=== PATIENT | male | born 1960 | race Two or more races ===

== ENCOUNTER 2024-01-30 13:47 | Inpatient (IN) | payer OTHER, SELFPAY ==
[2024-01-30] VITALS (9 sets, daily range): BP systolic 108–161; BP diastolic 79–102; BMI 36.5
[2024-01-30 11:21] LABS: % Basophils 0.7 % (0-2); % Eosinophils 2.2 % (0-6); % Immature Granulocytes 0.4 % (0-0.5); % Lymphocytes 20.7 % (20.5-51.1); % Monocytes 6.3 % (1.7-9.3); % Neutrophils 69.7 % (42.2-75.2); Absolute Basophils 0.1 10^3/uL (0-0.2); Absolute Eosinophils 0.2 10^3/uL (0-0.7); Absolute Lymphocytes 1.7 10^3/uL (1.2-3.4); Absolute Monocytes 0.5 10^3/uL (0.1-0.6); Absolute Neutrophils 5.7 10^3/uL (1.4-6.5); Hematocrit 38.6 % (39.0-52.0); Hemoglobin 13.2 g/dL (13.0-18.0); Mean Corp Hgb Conc. 34.2 g/dL (33.0-37.0); Mean Corpuscular Hgb 31.1 pg (27.0-31.0); Mean Corpuscular Volume 90.8 fL (80.0-94.0); Nucleated Red Blood Cells % 0 % (-); Platelet Count 211 10^3/uL (130-400); Red Blood Cell Count 4.25 10^6/uL (4.70-6.10); White Blood Cell Count 8.2 10^3/uL (4.8-10.8)
[2024-01-30 11:28] LABS: ALT (SGPT) 37 U/L (0-50); AST (SGOT) 43 U/L (17-59); Albumin 4.6 g/dl (3.5-5.0); Alkaline Phosphatase 86 U/L (38-126); Blood Urea Nitrogen 23 mg/dl (9-20); Calcium 9.7 mg/dl (8.4-10.2); Carbon Dioxide 22 mmol/L (22-30); Chloride 106 mmol/L (98-107); Glucose 111 mg/dl (70-99); Potassium 4.8 mmol/L (3.5-5.1); Sodium 138 mmol/L (135-145); Total Bilirubin 0.6 mg/dl (0.2-1.3); Total Protein 7.1 g/dl (6.3-8.2); eGFR > 60.00
[2024-01-30 11:41] LABS: Troponin I 0.582 ng/ml
--- NOTE | 2024-01-30 11:48 | ED.GENMED ---
History of Present Illness
General
Chief Complaint: Chest Pain
Source: patient and records
Exam Limitations: none
Time Seen by Provider: 01/30/24 11:02
Nursing documentation reviewed up to this point in time: agreed with
History of Present Illness
History of Present Illness:
Patient is a 63-year-old male with a known history of coronary artery disease who presents to the emergency department after having chest pain couple nights ago where he could not lay flat. Patient denies any shortness of breath or diaphoresis. At
that time it came so severe that he did take nitroglycerin which seemed to help. Yesterday he felt okay and then last night he was okay however this morning developed chest pressure and took 3 nitroglycerin with relief. This chest pain is similar
to that. Patient again denies shortness of breath or diaphoresis but does feel left shoulders stiffness. Patient denies any exertional symptoms. 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 Patient states
that he passed the stress test prior to his previous stents. Patient denies fever or chills. Patient denies any sore throat, nasal congestion or cough. Patient denies any GI or symptoms. Patient denies any leg pain or swelling.
Past History
Past History
ED Past Medical History: CAD, HTN, Hypercholesterolemia and Other (ITP)
Social History
Tobacco: Former smoker
Review of Systems
Review of Systems
All Other Systems: ROS reviewed and negative except as documented in HPI and ROS
Constitutional: Reports no symptoms
EENT: Reports no symptoms
Respiratory: Reports no symptoms
Cardiac: Reports chest pain; Denies diaphoresis, palpitations or syncope
ABD/GI: Reports no symptoms
: Reports no symptoms
Musculoskeletal: Reports no symptoms
Skin: Reports no symptoms
Neurological: Reports no symptoms
Hematologic/Lymphatic: Reports no symptoms
Phy Exam
Physical Exam
Physical Exam:
Physical Exam
General: No apparent distress, alert and appropriate, well nourished, well hydrated
HENT: Normocephalic, supple with no lymphadenopathy, no thyromegaly
Eyes: Clear sclera, conjuctiva without injection
Heart: Regular rhythm and rate. No S3, S4. No murmur. No NVD, bruit
Lungs: No respiratory distress, no stridor, lung sounds clear and equal bilaterally, chest wall symmetrical and nontender
Abdomen: Soft, nontender, no organomegaly, no CVA tenderness, BS good
Neuro: Alert and oriented x 3, CN II - XII intact, no motor focality, no cerebellar dysfunction
Skin: no rash
Psychiatric: well kept. interactive and cooperative
Extremities: No edema, cyanosis, tenderness, Good and equal peripheral pulses.
Scores
Heart Score for Chest Pain Patients
STEMI patient?: No
History: Moderately Suspicious
ECG: Nonspecific Repolarization
Age: >45 - <65 years
Risk Factors: >/= 3 Risk Factors or History of CAD
Troponin: >/= 3 x Normal Limit
Heart Score for Chest Pain Patients: 7
Heart Score Risk: 72.7 % MACE over next 6 weeks
Course
Orders/Labs/Results
Orders:
Orders
01/30/24 10:28
Electrocardiogram (*1) Urgent
Reason for Study: Chest Pain
EKG- Treatment ONCE
01/30/24 10:51
Cardiac Monitoring- Treatment ONCE
IV Insert/Care/Rem.- Treatment PRN
O2 Therapy [RESP] Urgent
Titrate/Wean O2 to maintain O2 sat greater than (%): 90
Special Instructions: Maintain sats >/=90%
Pulse Ox/spot Check [RESP] Urgent
Quantity: 1
Special Instructions: ON ROOM AIR
01/30/24 11:06
Complete Blood Count/With Diff Urgent
Comprehensive Metabolic Panel Urgent
Troponin I Urgent
01/30/24 11:48
Aspirin Chewable [Low Strength Aspirin] 324 mg PO NOW STA
Heparin 4,000 units IV NOW STA
Nitroglycerin Ointment [Nitro-Bid] 1 inch TOPICAL NOW STA
01/30/24 11:[address] Non Medication Order As Directed
Physician Order: PTT 6 hours after initial start of Heparin infusion
Above order entered?: Yes
01/30/24 11:57
PTT Urgent
Comment: Obtain baseline before beginning heparin infusion if not already collected
01/30/24 12:00
Heparin 25282 Units/250 ml 25,000 units in 250 ml IV PER PROTOCOL
Weight to be used for heparin protocol in kilograms (kg):: 110
Protocol:: Cardiac Tx/Acute Coronary
PTT Goal Range to be used:: PTT 73 to 111 seconds
Order type:: Initial
INITIAL Infusion Dose (UNITS/KG/hr) & then follow protocol:: 15 units/kg/hr
Infusion Dose in UNITS/hr & then follow protocol (UNITS/hr):: 1,500
INFUSION RATE in mL/hr & then follow protocol (mL/hr):: 15
PTT less than or equal to 64 seconds:: Increase rate by 200 units/hr (+ 2 mL/hr)
PTT 64.1 to 72.9 seconds:: Increase rate by 100 units/hr (+ 1 mL/hr)
PTT 73 to 111 seconds:: Target Range. No change in rate.
PTT 111.1 to 130.9 seconds:: Decrease rate by 100 units/hr (- 1 mL/hr)
PTT 131 to 199.9 seconds:: HOLD for 1 hr. Then decrease rate by 200 units/hr (- 2 mL/hr)
PTT greater than or equal to 200 seconds:: HOLD for 2 hrs & Notify Provider. Then decrease by 200 units/hr (-
2 mL/hr)
Lab follow-up:: Each change, PTT q6h until 2 consecutive are therapeutic. Then PTT
daily.
01/30/24 13:10
Admit/Transfer Patient As Directed
Co-Sign Provider:
Level of Care: Inpatient admission
Assign to:: Telemetry
Physician / Group: ronald
Diagnosis: chest pain
Reason for Telemetry: Chest Pain syndromes
Date to Stop Telemetry: 02/01/24
Time to Stop Telemetry: 11:00
Reason for Hospitalization: chest pain
Expected length of stay greater than two midnights?: Yes
ELOS- Estimated Length of Stay in days: 3
I certify the patient meets the requirements for IP care: Yes
PRN Pain Medication Management As Directed
May give lesser potent ordered pain med per pt: Yes
preference::
Protocol:: Medication orders for pain may be administered in a
manner that supports deferring to patient preference
when the pt is:
- Requesting an ordered lesser potent pain medication.
Least to most potent pain medications are defined
as: acetaminophen < NSAID < tramadol < opioids
(morphine, oxycodone, hydromorphone).
- Requesting a lesser dose of the same medication IF
ORDERED.
- Requesting a less intrusive route of administration
if both routes are prescribed by the provider (PO <
IV).
01/30/24 13:12
Code Status As Directed
Resuscitation Status: Full Code
01/30/24 18:08
PTT Routine
Comment: IV HEPARIN GTT
02/01/24 11:00
DC Protocol for Telemetry ONCE
Abnormal Lab Results
01/30/24
11:06
RBC 4.25 L 10^6/uL
(4.70-6.10)
Hct 38.6 L %
(39.0-52.0)
MCH 31.1 H pg
(27.0-31.0)
BUN 23 H mg/dl
(9-20)
Glucose 111 H mg/dl
(70-99)
Troponin I 0.582 H* ng/ml
01/30/24 11:06
01/30/24 11:06
Vital Signs
Initial and Last Documented VS:
Initial Vital Signs
Temp Pulse Resp BP Pulse Ox
98.2 F 75 16 143/84 98
01/30/24 10:25 01/30/24 10:25 01/30/24 10:25 01/30/24 10:25 01/30/24 10:25
Last Documented Vital Signs
Temp Pulse Resp BP Pulse Ox
98.2 F 78 19 144/86 97
01/30/24 10:25 01/30/24 13:45 01/30/24 13:45 01/30/24 13:00 01/30/24 13:45
*Radiology
Radiology exam reviewed: other (na)
*Pulse Oximetry
Patient hypoxic: no
*EKG
Interpreted by ED Provider?: Yes
EKG Intrepretation Date: 01/30/24
EKG Intrepretation Time: 11:53
Interpretation: abnormal
Comparison EKG: changes noted
Heart Rate: 67
Rate: normal
Rhythm: sinus
[place]: normal axis
Interval: normal interval
QRS Pattern: normal QRS
Ischemia: non-specific ST changes
*Assistant Construction Superintendent Interpretation
Rate: normal
Interpretation: normal
Heart Rate: 65
Rhythm: sinus
*Critical Care Note
Total Time (30-74mins, 75-104mins- exclusive of procedures): 35 minutes
ED Attending Note
-
Portions of this chart may have been created with voice recognition software.� Occasional wrong word or��sound alike� substitutions may have occurred due to the inherent limitations of voice recognition software.
Discharge Plan
Departure
Patient Disposition: Admit
Date of Disposition: 01/30/24
Time of Disposition: 11:56
Admit to: IMU
Admit to doctor: Hospitalist
Presentation/result/management discussed w/ accepting MD/DO: Cardiology
Patient with high blood pressure during this ER visit?: Yes
Condition: Serious
Covid-19: Not Applicable
Discharge Problem:
Non-STEMI (non-ST elevated myocardial infarction)
Interventions
Interventions:
*Risk Screen - Suicide Last Done: 01/30/24 12:26
*General Assessment Last Done: 01/30/24 12:26
*Neglect/Abuse Screening Last Done: 01/30/24 12:26
ED- Fall Risk Assessment Last Done: 01/30/24 11:18
*ED COVID-19 Vaccine History Last Done: 01/30/24 12:26
ED- Cardiac Assessment Last Done: 01/30/24 11:18
[2024-01-30] MEDS: LOW STRENGTH ASPIRIN 324 MG PO (12:07)
[2024-01-30] MEDS: HEPARIN 4000 UNITS IV (12:07)
[2024-01-30] MEDS: NITRO-BID 1 INCH TOPICAL ×3 (12:07→23:57)
[2024-01-30] MEDS: HEPARIN 25000 UNITS/250 ML IV (12:08)
[2024-01-30 12:16] LABS: APTT 29.9 Sec (23.4-35.0)
--- NOTE | 2024-01-30 12:53 | HPS.HSE ---
Addendum entered and electronically signed by Luis Enrique Da Silva MD 01/30/24 13:23:
I spent a total of 78 minutes with the patient or on the floor. More than 50% of this time involved counseling and coordination of care.
Addendum entered and electronically signed by Luis Enrique Da Silva MD 01/30/24 13:22:
I saw and examined the patient.
The COMPTOMETER OPERATOR's note was reviewed and I agree with the note.
Comment:
66 male past medical history of CAD, hypertension, hyperlipidemia, CAD who is presenting with chest pain for the past couple nights. Unable to lay flat. Denies any shortness of breath or diaphoresis. States nitroglycerin alleviates chest pain.
States chest pain is similar to his prior cardiac event. Nitro patch applied and denies any further chest pain currently. Currently comfortable. In the ER labs with elevated troponin. States drinks multiple beers and vodka daily. History of
alcohol abuse withdrawal seizure. Received full dose aspirin nitroglycerin and started on Heparin infusion.
General: Well Developed, Well Nourished and No Apparent Distress, obese
HEENT: NormoCephalic, Moist mucous membranes and Atraumatic
Respiratory: Clear
Cardiac: S1/S2 and Regular Rhythm; No Murmur or Rub
GI: Soft, Non Tender, Non Distended and Normal Bowel Sounds; No Organomegaly
Musculoskeletal: No Clubbing, No Cyanosis and No Edema
Skin: No Rash
Neuro: AO x 3 and Nonfocal/grossly intact
Impression
Elevated Troponin likely secondary to NSTEMI
CAD
Daily alcohol abuse
Primary hypertension
Hyperlipidemia
Gout
Plan
Start patient on heparin infusion
Trend troponin
Check proBNP
Echo in the morning
Cardiology eval
N.p.o. past midnight in case of cardiac catheterization
Continue home meds
DVT prophylaxis heparin infusion.
Original Note:
Family Physician
-
Family Physician: Ruy Jay
Chief Complaint
-
chest pain
History of Present Illness
63-year-old male with a known history of coronary artery disease, htn, ITP, HLd who presents to the emergency department after having chest pain couple nights ago where he could not lay flat. stated mid chest pain radiating to back of his neck.
Patient denies any shortness of breath or diaphoresis. took nitro with some relief in his symptoms. patient also noted elevated BP at that time. Patient denies fever or chill, runny nose, congestion, cough. denied abdominal pain, n,v, d. denied
dysuria or hematuria.
noted elevated trop. initiated on heparin drip. gave asa. admitting for further management.
Medical History
Past Medical History
Past Medical History: Reports Other
Additional Past Medical History:
ITP
Hyperlipidemia
Coronary artery disease coronary artery disease
Hypertension
Past Surgical History: Reports Other
Additional Past Surgical History:
Cardiac stent
bilateral hip surgery
Social History
Tobacco: Former Smoker
Alcohol: Daily
Drug: None
Personal:
Living: With Family
Family History
Family History: Not pertinent
Allergies / Home Medications
Allergies reflects when Allergies were last updated in [facility].
Home Medications with original date entered in [facility]
Allergy/Medication List:
Allergies
Allergy/AdvReac Type Severity Reaction Status Date / Time
No Known Allergies Allergy Verified 01/30/24 10:27
Home Medications
allopurinol 300 mg tablet 300 mg PO DAILY 09/04/20
aspirin 81 mg chewable tablet 81 mg PO DAILY 09/04/20
atorvastatin 40 mg tablet 80 mg (2 x 40 mg) PO QPM 09/04/20
metoprolol succinate 25 mg tablet,extended release 24 hr 25 mg PO DAILY 09/04/20
nitroglycerin 0.4 mg sublingual tablet 0.4 mg sublingual [id number] PRN chest pain 09/04/20
ibuprofen 200 mg tablet (Advil) 200 mg PO Q6HPRN PRN mildpain 01/30/24
Review of Systems
-
Cardiac: Reports No Symptoms and Chest Pain
Physical Exam
Vital Signs
Vital Signs
Temp Pulse Resp BP Pulse Ox
98.2 F 67 21 137/81 98
01/30/24 10:25 01/30/24 12:15 01/30/24 12:15 01/30/24 12:06 01/30/24 12:15
Physical Exam
General: Well Developed, Well Nourished and No Apparent Distress
HEENT: NormoCephalic, Moist mucous membranes and Atraumatic
Respiratory: Clear
Cardiac: S1/S2 and Regular Rhythm; No Murmur or Rub
GI: Soft, Non Tender, Non Distended and Normal Bowel Sounds; No Organomegaly
Rectal: Deferred by Provider
Musculoskeletal: No Clubbing, No Cyanosis and No Edema
Skin: No Rash
Neuro: AO x 3 and Nonfocal/grossly intact
Laboratory Results
-
01/30/24 11:06
01/30/24 11:06
Laboratory Results
APTT 29.9 Sec (23.4-35.0) 01/30/24 11:57
Total Bilirubin 0.6 mg/dl (0.2-1.3) 01/30/24 11:06
AST 43 U/L (17-59) 01/30/24 11:06
ALT 37 U/L (0-50) 01/30/24 11:06
Alkaline Phosphatase 86 U/L (38-126) 01/30/24 11:06
Troponin I 0.582 ng/ml H* 01/30/24 11:06
Data Reviewed
-
Lab Data: Labs Reviewed by me
Impression/Plan
-
#chest pain r/o NSTEMI
-trop 0.58
-trend trop
-iv heparin
-asa continued
-EKG with NSR with T wave inversion
-obtain a1c, lipid profile
-nitro prn for chest pain
-morphine prn for chest pain
-will keep patient NPO after MN
-cardiology consulted
#hxt of CAD
-s/p cardiac stents
# Alcohol dependence.
-drinks and couple vodka and beers daily
-last drink was last night
-initiate on alcohol protocol
-monitor MSAS score
#GOUT
-allopurinol ocntinued
#HLD
-statin
#essential htn
-metoprolol continued with hold parameters
#DVT prophylaxis
-heparin drip
#CODE status
-full code
-
--- NOTE | 2024-01-30 13:23 | W.PN.UPDATE ---
Update Note
Progress Note Update
For billing purposes.
--- NOTE | 2024-01-30 14:40 | CON.CAR ---
Consultation
Consultation Request
Date/Time Consultation Requested: 01/30/2024 12: 30
Date/Time Consultation Performed: 01/30/2024 13: 00
Requesting Provider: Trey
Performing Provider: Rossana
Reason for Consultation: Chest pain, non-STEMI
Medical History
-
Chief Complaint: Chest pain
History of Present Illness:
Pee has a history of hyperlipidemia, gout, thrombocytopenia with prior ITP. He has a history of LAD stent by Dr. Thacker in 2020. He was found to have nonobstructive right coronary artery disease in 2020 as well. He is followed by Dr. Sales
at [facility].
He presents with chest discomfort over the last 3 days. It would come and go like a pressure in the chest. Of note 2 days ago he woke up with pain at 2 AM and took ventricular strain. The pain lasted 2 hours. He continued to get chest discomfort
came to the ER and found to have a non-STEMI with a troponin of 0.58. He denies chest pain at the present time. He took 2 nitroglycerin earlier today.
Past Medical History
Past Medical History: Other (See HPI)
Past Surgical History: Other (3 different hip replacements)
Social History
Alcohol: Daily (At least 2 drinks per day)
Drug: None
Personal:
Living: With Family
Employment: Retired
Family History
Family History: Other (No family history of premature coronary artery disease)
Allergies / Home Medications
Allergy/AdvReac Type Severity Reaction Status Date / Time
No Known Allergies Allergy Verified 01/30/24 10:27
�Medication �Instructions �Recorded �Confirmed �Type
allopurinol 300 mg tablet 300 mg PO DAILY 09/04/20 01/30/24 History
aspirin 81 mg chewable tablet 81 mg PO DAILY 09/04/20 01/30/24 History
atorvastatin 40 mg tablet 80 mg (2 x 40 mg) PO QPM 09/04/20 01/30/24 Rx
metoprolol succinate 25 mg 25 mg PO DAILY 09/04/20 01/30/24 History
tablet,extended release 24 hr
nitroglycerin 0.4 mg sublingual 0.4 mg sublingual [id number] PRN 09/04/20 01/30/24 History
tablet chest pain
ibuprofen 200 mg tablet (Advil) 200 mg PO Q6HPRN PRN mildpain 01/30/24 01/30/24 History
Review of Systems
-
History Source: Patient
All other systems: Negative unless noted
Constitutional: No Symptoms
EENT: No Symptoms
Respiratory: No Symptoms
Cardiac: Chest Pain
Abdomen/GI: No Symptoms
: No Symptoms
Musculoskeletal: No Symptoms
Skin: No Symptoms
Neurological: No Symptoms
Endocrine: No Symptoms
Hematologic/Lymphatic: No Symptoms
Physical Exam
Vital Signs
Temp Pulse Resp BP Pulse Ox
98.2 F 78 19 144/86 97
01/30/24 10:25 01/30/24 13:45 01/30/24 13:45 01/30/24 13:00 01/30/24 13:45
General: Well developed, well nourished in NAD.
Neck: Supple, no JVD, HJR, carotids +2 B/L, no bruits bilaterally.
Heart: Non displaced PMI, RRR, no murmurs, No S3, S4, no rubs.
Lungs: Clear to auscultation bilaterally, no wheeze, rhonchi, rubs bilaterally,
normal expiratory phase.
Abdomen: Normal bowel sounds, soft, non-tender, non-distended.
Extremities: No clubbing, cyanosis or edema bilaterally.
Neuro: Grossly nonfocal, awake, alert and oriented x3.
Lab Results
01/30/24 11:06
01/30/24 11:06
Troponin I 0.582 ng/ml H* 01/30/24 11:06
Impression / Plan
-
Impression:
Non-STEMI with troponin of 0.58
History of LAD stent [address] Thacker
Nonobstructive RCA disease September 2020 by invasive physiologic lesion assessment
History of hypertension
History of hypercholesterolemia
Catheterization August 2020: LAD stent
Catheterization September 2020: No obstructive disease noted in right coronary artery
Plan:
He presents with worsening chest pain and NSTEMI
He is currently pain-free on IV heparin
Will add nitroglycerin paste
Will continue Toprol, aspirin, Lipitor
check lipids
Discussed with Dr. Thacker who will plan on cardiac catheterization 01/30 PM
N.p.o. after midnight
Data Reviewed
-
EKG: Tracing Personally Visualized and interpreted
Medical Tests (Nuc Med, Echo etc): Report Reviewed by me
Labs: Labs Reviewed by me
Old Records: Reviewed
[2024-01-30] MEDS: NITROSTAT (SUBLINGUAL) 0.4 MG SL ×2 (15:32→23:23)
[2024-01-30] MEDS: MORPHINE SULFATE 1 MG IV ×2 (15:45→23:41)
[2024-01-30 16:02] LABS: Alcohol None Detected; GGTP 67 U/L (15-73); Magnesium 1.9 mg/dl (1.6-2.3); Phosphorus 3.7 mg/dl (2.5-4.5)
[2024-01-30 16:04] LABS: Troponin I 0.714 ng/ml
[2024-01-30 16:08] LABS: B-Hydroxybutyrate 0.29 mmol/L (0.02-0.27)
[2024-01-30] MEDS: LIPITOR 80 MG PO (16:58)
[2024-01-30 17:47] LABS: Urine Albumin Negative (Neg - Trace); Urine Bilirubin Negative (Negative); Urine Character Clear (Clear); Urine Color Yellow; Urine Glucose Negative (Negative); Urine Ketone Negative (Negative); Urine Leukocyte Negative (Negative); Urine Nitrite Negative (Negative); Urine Occult Blood Negative (Negative); Urine Specific Gravity 1.025 (<1.030); Urine Urobilinogen Negative (Neg - 1+)
[2024-01-30 17:56] LABS: Amphetamines Negative (Negative); Barbiturates Negative (Negative); Benzodiazepines Negative (Negative); Buprenorphine Negative (Negative); Cocaine Negative (Negative); Marijuana Negative (Negative); Methadone Negative (Negative); Methamphetamines Negative (Negative); Opiates Positive (Negative); Phencyclidine Negative (Negative); Tricyclic Antidepressants Negative (Negative)
[2024-01-30 18:09] LABS: APTT 92.7 Sec (23.4-35.0)
[2024-01-30 18:18] LABS: Fentanyl, Urine Negative (Negative)
[2024-01-30 18:21] LABS: Troponin I 0.536 ng/ml
[2024-01-30] MEDS: THIAMINE INJECTION 200 MG IV (20:31)
[2024-01-30] MEDS: TYLENOL 1000 MG PO (21:06)
[2024-01-31] VITALS (19 sets, daily range): BP systolic 113–146; BP diastolic 73–108; BMI 36.2
--- NOTE | 2024-01-31 00:12 | PTCARENOTE ---
At 2320, patient complained of worsening chest pain. Patient rated chest pain 5/10. Sublingual nitro and iv morphine given, see MAR. See chart for vitals. EKG done. Marychuy JARAMILLO made aware. Troponin ordered.
[2024-01-31 00:14] LABS: APTT 68.7 Sec (23.4-35.0)
[2024-01-31 00:31] LABS: Troponin I 0.597 ng/ml
[2024-01-31] MEDS: HEPARIN 25000 UNITS/250 ML IV (05:03)
[2024-01-31] MEDS: TYLENOL 650 MG PO ×2 (05:08→22:04)
[2024-01-31] MEDS: NITRO-BID 1 INCH TOPICAL ×2 (05:08→12:10)
[2024-01-31 09:05] LABS: Glycohemoglobin (HgbA1c) 5.8 % (4.0-5.6)
[2024-01-31] MEDS: THIAMINE INJECTION 200 MG IV ×2 (09:37→19:47)
[2024-01-31] MEDS: TOPROL XL 25 MG PO (09:37)
[2024-01-31] MEDS: FOLVITE 1 MG PO (09:37)
[2024-01-31] MEDS: LOW STRENGTH ASPIRIN 81 MG PO (09:37)
[2024-01-31] MEDS: ZYLOPRIM 300 MG PO (09:37)
[2024-01-31 09:53] LABS: Blood Urea Nitrogen 17 mg/dl (9-20); Carbon Dioxide 27 mmol/L (22-30); Chloride 104 mmol/L (98-107); Estimated Creatinine Clearance 94 ml/min; Glucose 120 mg/dl (70-99); HDL Cholesterol 81 mg/dl; LDL Cholesterol, Calculated 28 mg/dl; Potassium 4.5 mmol/L (3.5-5.1); Sodium 139 mmol/L (135-145); Total Cholesterol 147 mg/dl (50-199); Triglyceride 192 mg/dl (10-149); Very Low Density Lipoprotein 38 mg/dl (0-30); eGFR > 60.00
[2024-01-31 10:01] LABS: Hematocrit 40.1 % (39.0-52.0); Hemoglobin 13.4 g/dL (13.0-18.0); Mean Corp Hgb Conc. 33.4 g/dL (33.0-37.0); Mean Corpuscular Hgb 31.3 pg (27.0-31.0); Mean Corpuscular Volume 93.7 fL (80.0-94.0); Mean Platelet Volume 10.1 fL (7.4-10.4); Platelet Count 213 10^3/uL (130-400); Red Blood Cell Count 4.28 10^6/uL (4.70-6.10); White Blood Cell Count 8.7 10^3/uL (4.8-10.8)
[2024-01-31 14:12] LABS: ACT-LR - POC 247 Seconds (116-155)
[2024-01-31 14:26] LABS: ACT-LR - POC 334 Seconds (116-155)
--- NOTE | 2024-01-31 14:41 | W.PN.CARDCBS ---
Today's Communication / Plan
-
Chest pain-free
For cardiac catheterization later today
Impression / Plan
-
Biofuels Plant Operations Engineer: Dr. Sales ([facility])
Impression:
Non-STEMI with troponin of 0.7
History of LAD stent [address] Thacker
Nonobstructive RCA disease September 2020 by invasive physiologic lesion assessment
History of hypertension
History of hypercholesterolemia
Catheterization August 2020: LAD stent
Catheterization September 2020: No obstructive disease noted in right coronary artery
Plan:
No further chest pain
For cardiac catheterization today with Dr. Thacker
LDL 28 but may be spuriously low due to GA, continue high-dose Lipitor
Continue Toprol
Consider Jardiance if insurance will allow
Case management consult to evaluate cost
Further treatment depending on results of catheterization
Progress Note - Biofuels Plant Operations Engineer
Subjective
Date of Service: January 31, 2024
No chest pain or shortness of breath
Objective
Labs:
01/31/24 09:19
01/31/24 09:19
Labs
Hgb 13.4 g/dL (13.0-18.0) 01/31/24 09:19
Hct 40.1 % (39.0-52.0) 01/31/24 09:19
Plt Count 213 10^3/uL (130-400) 01/31/24 09:19
APTT 100.0 Sec (23.4-35.0) H 01/31/24 09:19
Sodium 139 mmol/L (135-145) 01/31/24 09:19
Potassium 4.5 mmol/L (3.5-5.1) 01/31/24 09:19
BUN 17 mg/dl (9-20) 01/31/24 09:19
Creatinine 0.9 mg/dL (0.7-1.3) 07/22/24 09:19
Glucose 120 mg/dl (70-99) H 01/31/24 09:19
Troponins
01/30/24 01/30/24 01/30/24
11:06 15:25 17:50
Troponin I 0.582 H* 0.714 H* 0.536 H*
01/30/24
23:56
Troponin I 0.597 H*
Vital Signs and I&O:
Vital Signs
Temp Pulse Resp BP Pulse Ox
97.8 F 73 16 122/75 100
01/31/24 11:05 01/31/24 11:05 01/31/24 11:05 01/31/24 11:05 01/31/24 11:05
Vital Signs
Temp Pulse Resp BP Pulse Ox
97.8 F 73 16 122/75 100
01/31/24 11:05 01/31/24 11:05 01/31/24 11:05 01/31/24 11:05 01/31/24 11:05
Intake & Output
01/29/24 01/30/24 01/31/24 02/01/24
06:59 06:59 06:59 06:59
Intake Total 1305 / 1305
Balance 1305 / 1305
Physical Exam
Physical Exam
General: Well developed, well nourished in NAD.
Neck: Supple, no JVD, HJR, carotids +2 B/L, no bruits bilaterally.
Heart: Non displaced PMI, RRR, no murmurs, No S3, S4, no rubs.
Lungs: Clear to auscultation bilaterally, no wheeze, rhonchi, rubs bilaterally,
normal expiratory phase.
Extremities: No clubbing, cyanosis or edema bilaterally.
Neuro: Grossly nonfocal, awake, alert and oriented x3.
--- NOTE | 2024-01-31 14:55 | ITS.CL.ANGIO ---
Master Automotive Glass Technician - Angioplasty
Angioplasty
Procedure Report:
LEFT HEART CATHETERIZATION
Date of Procedure: 01/31/2024
Procedures performed:
1: Coronary angiography
2: Left ventricular hemodynamic
3: Percutaneous coronary intervention to right coronary artery with placement of a [id number] Xience drug eluting stent post dilated at high pressure with a 3.25mm noncompliant balloon
Primary Care Physician: Dr. Ruy Jay
Primary Waiter/Waitress Formal: Dr. Trey Sales
INDICATION: The patient is a 63-year-old man with a past medical history significant for hyperlipidemia, gout, status post bilateral hip replacement, prior ITP, body mass index of 35, and CAD s/p LAD stenting in 2020 who presents with new onset
crescendo angina and ruled in for a small NSTEMI.
ACCESS: The patient was prepped and draped in usual sterile fashion. A 6 Faroese sheath was placed in the right radial artery using the Seldinger over the wire technique.
HEMODYNAMIC FINDINGS (mmHg):
LV(s/d,EDP): 120/12, 116
Ao(s/d,m): 120/78, 94
ANGIOGRAPHIC FINDINGS:
Single-plane Left Ventriculography in OLIVA Projection: Not done.
Coronary Angiography:
Dominance: Right
Left Main: Normal
Left Anterior Descending: The left anterior descending artery is a relatively large caliber vessel that gives rise to a large caliber high first diagonal branch which courses and a ramus distribution. The diagonal branch appears widely patent with
no focal obstructive disease and ESTELA-3 flow. The LAD itself has two widely patent overlapping stents with mild in-stent restenosis and normal distal flow.
Left Circumflex: The left circumflex is a large caliber nondominant system that gives rise to 2 large caliber widely patent obtuse marginal branches that have ESTELA-3 flow.
Right Coronary: The right coronary artery is a medium caliber dominant vessel. The proximal right coronary artery has diffuse moderate disease with a long area of tapered 30% proximal stenosis followed a pre-occlussive 99% mid stenosis through a
tortuous segment involving the takeoff of a relatively large caliber RV marginal branch that has an ostial 70% stenosis. The distal RCA has a high bifurcation gives rise to a medium caliber posterior descending artery and smaller posterior left
ventricular branch. The distal vessels are widely patent with ESTELA 2 flow.
Percutaneous Coronary Intervention (PCI): In light of the patient's crescendo symptoms and the above angiographic findings with critical RCA disease, I elected to proceed with PCI of the RCA. The patient was given unfractionated heparin and
pretreated with aspirin. A loading dose of clopidogrel 600 mg was given on the table. A 6 Faroese AL 0.75 guiding catheter was used to engage. A BMW wire was easily advanced across the preocclusive stenosis and predilation with a 2.0 x 20 mm balloon
restored ESTELA 3 flow. Next a 2.75 x 28 Xience drug-eluting stent was deployed at 14 melissa. The stent was postdilated with a 3.0 mm diameter noncompliant balloon. Follow-up angiography showed some residual stenosis so the entire stented segment was
postdilated in a distal to proximal fashion with a 3.25 mm diameter noncompliant balloon inflated to 16 melissa. Care was taken to stay within the stented margins.
FINAL RESULT: 0% in-stent residual stenosis with an excellent angiographic result and ESTELA-3 flow in all vessels.
Flouroscopy time(min): 12.1
Radiation Dose (mGy): 875
DAP (Gy.cm2): 48
Closure device: None. A TR band was applied for hemostasis at the right wrist.
Complications: None.
ASSESSMENT:
1: Successful PCI of the culprit right coronary artery with placement of a drug-eluting stent as described above.
2: Widely patent previously placed LAD stents.
3: Normal left ventricular filling pressures.
CONCLUSIONS and RECOMMENDATIONS:
1: Routine post drug-eluting stent and post non-STEMI medical therapy and monitoring with dual antiplatelet therapy with aspirin and Plavix uninterrupted for a year and aspirin 81 mg daily indefinitely without interruption.
Gregorio Thacker M.D.
Copy to: Dr. Ruy Jay
--- NOTE | 2024-01-31 15:02 | CM ---
IA Completed by manager of case management.
Dx: chest pain.
PMH: CAD, HTN, HDL, hx alcohol abuse.
CM consult for substance abuse counseling complete.
Discussed resources for alcohol. [facility] pamphlet given to patient. Declined a visit from [facility] at this time.
Lives at home with who is a retired nurse in a 2 story home. 12 steps to bedroom.
PLOF: Independent, drives
Cardiac cath scheduled today.
PCP: Ruy Devlin
[facility]
Plan: Discharge to home when stable. to transport home. No needs anticipated at this time.
--- NOTE | 2024-01-31 16:00 | CM ---
Pricing on [employer] is $47 for a 30 day supply.
[2024-01-31] MEDS: NSS 1000 IV (16:19)
--- NOTE | 2024-01-31 16:24 | CM ---
Chart reviewed. Patient is independent of ADLS, lives with his in a 2 STH, 0 JERSON, 0 DME. Plan is for the patient to return home . CM to follow
[2024-01-31] MEDS: LIPITOR 80 MG PO (18:16)
--- NOTE | 2024-01-31 18:22 | W.PN.HOSP.TC ---
Today's Communication/Plan
-
BMP in AM
Assessment / Plan
Assessment / Plan
#chest pain consistent with NSTEMI
-trop 0.58-->0.714-->0.536-->0.597
-trend trop
-iv heparin
-asa continued
-EKG with NSR with T wave inversion
-5.8% a1c, lipid profile
-nitro prn for chest pain
-morphine prn for chest pain
-cardiology consulted
Pt to be on ASA/Plavix for 1 yr, then ASA 81 mg indefinitely
As per cath report: 1: Successful PCI of the culprit right coronary artery with placement of a drug-eluting stent as described above.
2: Widely patent previously placed LAD stents.
3: Normal left ventricular filling pressures.
#hxt of CAD
-s/p cardiac stents
# Alcohol dependence.
-drinks and couple vodka and beers daily
-last drink was last night
-initiate on alcohol protocol
-monitor MSAS score
#GOUT
-allopurinol continued
#HLD
-statin
#essential htn
-metoprolol continued with hold parameters
#DVT prophylaxis
-heparin drip
#CODE status
-full code
-BMP in AM
Anticipated Discharge: Within 24 hours
Subjective/Interval History
-
Date of Service: January 31, 2024
No chest pain, in good spirits
Objective Data
-
Labs:
Laboratory Results
01/31/24 01/31/24
09:19 15:00
WBC 8.7
Hgb 13.4
Hct 40.1
Plt Count 213
APTT 100.0 H Cancelled
Sodium 139
Potassium 4.5
Chloride 104
Carbon Dioxide 27
BUN 17
Creatinine 0.9
Glucose 120 H
Calcium 10.0
Vital Signs:
Vital Signs
Temp Pulse Resp BP Pulse Ox
97.8 F 92 18 144/86 97
01/31/24 15:33 01/31/24 16:45 01/31/24 15:33 01/31/24 16:30 01/31/24 16:30
I&O
01/30/24 01/31/24 02/01/24
06:59 06:59 06:59
Intake Total 1305 / 1305 1445 / 1445
Output Total 400 / 400
Balance 1305 / 1305 1045 / 1045
Review of Systems
-
History Source: Patient
Constitutional: Denies Fever
EENT: Reports No Symptoms Reported
Respiratory: Reports No Symptoms
Cardiac: Reports No Symptoms; Denies Chest Pain
Abdomen/GI: Reports No Symptoms
Genitourinary: Reports No Symptoms
Neuro: Reports No Symptoms
Physical Exam
-
General: Well Developed and No Apparent Distress
HEENT: Normocephalic, Atraumatic and Moist Mucous Membranes
Respiratory: Other (coarse BS primarily bilateral lower lung field)
Cardiac: Regular Rhythm and S1/S2
GI: Nontender and Nondistended
Musculoskeletal: No Clubbing, No Cyanosis and No Edema
Skin: Warm and Dry; Negative Rash
--- NOTE | 2024-01-31 21:52 | PTCARENOTE ---
Assumed care of pt from dayshift RN. Walking rounds completed. Pt AAOx3. MSAS score 0. SR on the monitor. HR 70s. BP stable. No edema noted. Palpable pulses throughout. Pt on RA. POX 97%. Lung sounds clear throughout. Abdomen soft/nontender. +BS. Pt
voiding w/o issue. Right radial cath site clean/dry/intact. Pt instructed on right arm post cath restrictions. Right PIV clean/dry/intact. See worklist for full nursing assessment. Call herzog within reach.
[2024-02-01 03:49] VITALS: BP 131/77
[2024-02-01 04:05] VITALS: BMI 36.1
[2024-02-01 04:32] LABS: Hemoglobin 13.1 g/dL (13.0-18.0); Mean Corp Hgb Conc. 33.6 g/dL (33.0-37.0); Mean Corpuscular Hgb 30.7 pg (27.0-31.0); Mean Corpuscular Volume 91.3 fL (80.0-94.0); Platelet Count 212 10^3/uL (130-400); Red Blood Cell Count 4.27 10^6/uL (4.70-6.10); Red Cell Dist. Width 14.2 % (11.5-14.5); White Blood Cell Count 7.6 10^3/uL (4.8-10.8)
[2024-02-01] MEDS: TYLENOL 650 MG PO (04:35)
[2024-02-01 04:52] LABS: Blood Urea Nitrogen 16 mg/dl (9-20); Calcium 9.8 mg/dl (8.4-10.2); Carbon Dioxide 24 mmol/L (22-30); Chloride 107 mmol/L (98-107); Estimated Creatinine Clearance 106 ml/min; Glucose 106 mg/dl (70-99); Potassium 4.6 mmol/L (3.5-5.1); Sodium 139 mmol/L (135-145); eGFR > 60.00
[2024-02-01 07:55] VITALS: BP 125/74
[2024-02-01] MEDS: PLAVIX 75 MG PO (08:02)
[2024-02-01] MEDS: LOW STRENGTH ASPIRIN 81 MG PO (08:02)
[2024-02-01] MEDS: ZYLOPRIM 300 MG PO (08:03)
[2024-02-01] MEDS: FOLVITE 1 MG PO (08:04)
[2024-02-01] MEDS: TOPROL XL 25 MG PO (08:04)
[2024-02-01] MEDS: THIAMINE INJECTION 200 MG IV (08:05)
--- NOTE | 2024-02-01 08:44 | W.PN.CARDCBS ---
Addendum entered and electronically signed by Gal Tracy MD 02/01/24 10:52:
I saw and examined the patient.
The MULTIMEDIA ARTIST or PA's note was reviewed and I agree with the note.
Comment: General: Well developed, well nourished in NAD.
Neck: Supple, no JVD, HJR, carotids +2 B/L, no bruits bilaterally.
Heart: Non displaced PMI, RRR, no murmurs, No S3, S4, no rubs.
Lungs: Clear to auscultation bilaterally, no wheeze, rhonchi, rubs bilaterally,
normal expiratory phase.
Extremities: No clubbing, cyanosis or edema bilaterally.
Neuro: Grossly nonfocal, awake, alert and oriented x3.
Stable cardiology status for discharge. Echocardiogram okay. Follow-up with Dr. Sales
Original Note:
Today's Communication / Plan
-
Status post RCA PCI
Continue aspirin, Plavix, Toprol, Lipitor
Echo
Cardiac rehab
Outpatient cardiac follow-up with [facility]
for DC today
Impression / Plan
-
Primary Book Salesman: Dr. Sales ([facility] Cardiology)
Impression:
NSTEMI, peak trop 0.7, s/p RCA PCI 01/31/24
History of LAD stents [address] Thacker
Nonobstructive RCA disease September 2020 by invasive physiologic lesion assessment
History of hypertension
History of hypercholesterolemia
Catheterization August 2020: LAD stent
Catheterization September 2020: No obstructive disease noted in right coronary artery
Plan:
-He feels well this morning. Reports some general back discomfort which improved with Tylenol
-Troponin peaked at 0.7
-Status post RCA PCI 01/30, prior LAD stents widely patent
-Right wrist site soft, clean dry and intact
-Continue aspirin, Plavix
-Remains in sinus rhythm. Continue Toprol
-Continue high intensity lipid-lowering therapy
-Check echo
-For cardiac rehab
-Outpatient cardiac follow-up with [facility] arranged
-For discharge to home today
-Discussed with nursing, hospitalist
Progress Note - Book Salesman
Subjective
Date of Service: February 01, 2024
Some back pain overnight, relieved with Tylenol. No chest discomfort, shortness of breath, palpitations
Objective
Labs:
02/01/24 04:01
02/01/24 04:01
Labs
Hgb 13.1 g/dL (13.0-18.0) 02/01/24 04:01
Hct 39.0 % (39.0-52.0) 02/01/24 04:01
Plt Count 212 10^3/uL (130-400) 02/01/24 04:01
APTT Cancelled 01/31/24 15:00
Sodium 139 mmol/L (135-145) 02/01/24 04:01
Potassium 4.6 mmol/L (3.5-5.1) 02/01/24 04:01
BUN 16 mg/dl (9-20) 02/01/24 04:01
Creatinine 0.8 mg/dL (0.7-1.3) 02/01/24 04:01
Glucose 106 mg/dl (70-99) H 02/01/24 04:01
Troponins
01/30/24 01/30/24 01/30/24
11:06 15:25 17:50
Troponin I 0.582 H* 0.714 H* 0.536 H*
01/30/24
23:56
Troponin I 0.597 H*
Vital Signs and I&O:
Vital Signs
Temp Pulse Resp BP Pulse Ox
97.9 F 61 18 131/77 96
02/01/24 07:50 02/01/24 06:15 02/01/24 07:50 02/01/24 03:49 07/23/24 07:50
Vital Signs
Temp Pulse Resp BP Pulse Ox
97.9 F 61 18 131/77 96
02/01/24 07:50 02/01/24 06:15 02/01/24 07:50 02/01/24 03:49 02/01/24 07:50
Intake & Output
01/30/24 01/31/24 02/01/24 02/02/24
07:59 07:59 07:59 07:59
Intake Total 1305 / 1305 1445 / 1445
Output Total 400 / 400
Balance 1305 / 1305 1045 / 1045
Physical Exam
Physical Exam
GEN: No distress, awake, alert, oriented x3
HEENT: supple, anicteric, mmm, EOMI
LUNGS: CTA bilaterally, no wheezes/rales
CV: Reg, S1/S2, no murmur
ABD: soft, BS+, NT/ND
EXT: No cyanosis, clubbing, edema
NEURO: Gross non-focal
SKIN: Warm, pink, dry. No rash. Right wrist site clean dry and intact, soft
[2024-02-01 11:09] VITALS: BP 121/79
--- NOTE | 2024-02-01 14:00 | PTCARENOTE ---
Pt ambulating in room, denies chest pain, R radial dsg D+I. Pt anxious for discharge.
--- NOTE | 2024-02-01 14:29 | W.PN.HOSP.TC ---
Today's Communication/Plan
-
dc to home
Assessment / Plan
Assessment / Plan
#chest pain consistent with NSTEMI
-trop 0.58-->0.714-->0.536-->0.597
-asa continued
-EKG with NSR with T wave inversion
-5.8% a1c, lipid profile
-cardiology consulted
Pt to be on ASA/Plavix for 1 yr, then ASA 81 mg indefinitely
As per cath report: 1: Successful PCI of the culprit right coronary artery with placement of a drug-eluting stent as described above.
2: Widely patent previously placed LAD stents.
3: Normal left ventricular filling pressures.
#hxt of CAD
-s/p cardiac stents
# Alcohol dependence.
-drinks and couple vodka and beers daily
-last drink was last night
-initiate on alcohol protocol
-monitor MSAS score. Pt is aware of importance to limit Etoh
#GOUT
-allopurinol continued
#HLD
-statin
#essential htn
-metoprolol continued with hold parameters
#DVT prophylaxis
-heparin drip
#CODE status
-full code
dc now
reviewed with pt
see dictated note
More than 30 minutes spent in discharge including
Final examination of the patient
Summarizing hospital stay
Instructions for continuing care to all relevant caregivers
Preparation of discharge records, prescriptions, and referral forms
Total time spent (in minutes): 45
Anticipated Discharge: Today
Subjective/Interval History
-
Date of Service: February 01, 2024
Feels well, no chest pain
Objective Data
-
Labs:
Laboratory Results
02/01/24
04:01
WBC 7.6
Hgb 13.1
Hct 39.0
Plt Count 212
Sodium 139
Potassium 4.6
Chloride 107
Carbon Dioxide 24
BUN 16
Creatinine 0.8
Glucose 106 H
Calcium 9.8
Vital Signs:
Vital Signs
Temp Pulse Resp BP Pulse Ox
98.8 F 90 18 121/79 96
02/01/24 11:06 02/01/24 13:45 02/01/24 11:06 02/01/24 11:09 02/01/24 11:06
I&O
01/31/24 02/01/24 02/02/24
06:59 06:59 06:59
Intake Total 1305 / 1305 1445 / 1445
Output Total 400 / 400
Balance 1305 / 1305 1045 / 1045
Review of Systems
-
History Source: Patient
Constitutional: Denies Fever
EENT: Reports No Symptoms Reported
Respiratory: Reports No Symptoms
Cardiac: Reports No Symptoms; Denies Chest Pain
Abdomen/GI: Reports No Symptoms
Genitourinary: Reports No Symptoms
Neuro: Reports No Symptoms
Physical Exam
-
General: Well Developed and No Apparent Distress
HEENT: Normocephalic, Atraumatic and Moist Mucous Membranes
Respiratory: Other (coarse BS primarily bilateral lower lung field noted yesterday have resolved, lungs currently clear)
Cardiac: Regular Rhythm and S1/S2
GI: Nontender and Nondistended
Musculoskeletal: No Clubbing, No Cyanosis and No Edema
Skin: Warm and Dry; Negative Rash
--- NOTE | 2024-02-01 14:40 | W.DS.TRANS ---
DC Summary - Maintenance Mechanic Technician
-
Discharge Instructions:
Discharge Diagnosis/Procedures Angioplasty and stent to Right Coronary artery
Diet Low Cholesterol
Activity No strenuous activity
Driving Restrictions No driving for 24 hours
Bathing Restrictions None
Other Services Cardiac Rehab
Instructions:
Stand-Alone Forms: DC Instructions- Cath/EP Lab
Changes to Home Medications: Yes
Discharge Medications:
DC Medications w/original date entered in [employer]
allopurinol 300 mg tablet 300 mg PO DAILY 09/04/20
aspirin 81 mg chewable tablet 81 mg PO DAILY 09/04/20
atorvastatin 40 mg tablet 80 mg (2 x 40 mg) PO QPM 09/04/20
metoprolol succinate 25 mg tablet,extended release 24 hr 25 mg PO DAILY 09/04/20
nitroglycerin 0.4 mg sublingual tablet 0.4 mg sublingual [id number] PRN chest pain 09/04/20
clopidogrel 75 mg tablet 75 mg PO DAILY #30 tabs 02/01/24
Home Medication Changes
Plavix 75 mg added
Pending Results: No
== END 2024-02-01 14:57 | disposition home or self-care (01) | DRG 322 ==
LOC: IVU 13:47
PROVIDERS: Internal Medicine Interventional Cardiology; Nurse Practitioner Family; Registered Nurse; ADMITTING PHYSICIAN Hospitalist; ATTENDING PHYSICIAN Internal Medicine; CONSULT PHYSICIAN Internal Medicine Cardiovascular Disease; EMERGENCY PHYSICIAN Emergency Medicine; FAMILY PHYSICIAN Family Medicine
PROC: B2111ZZ Fluoroscopy of Multiple Coronary Arteries using Low Osmolar Contrast (ICD-10-PCS; 2024-01-31)
PROC: 4A023N7 Measurement of Cardiac Sampling and Pressure, Left Heart, Percutaneous Approach (ICD-10-PCS; 2024-01-31)
PROC: 027034Z Dilation of Coronary Artery, One Artery with Drug-eluting Intraluminal Device, Percutaneous Approach (ICD-10-PCS; 2024-01-31)
PROC: B2151ZZ Fluoroscopy of Left Heart using Low Osmolar Contrast (ICD-10-PCS; 2024-01-31)
DX: I21.4 Non-ST elevation (NSTEMI) myocardial infarction (principal); D69.3 Immune thrombocytopenic purpura; I25.10 Atherosclerotic heart disease of native coronary artery without angina pectoris; E78.00 Pure hypercholesterolemia, unspecified; E66.9 Obesity, unspecified; F10.20 Alcohol dependence, uncomplicated; I10 Essential (primary) hypertension; Z96.643 Presence of artificial hip joint, bilateral; Z87.891 Personal history of nicotine dependence; Z68.36 Body mass index [BMI] 36.0-36.9, adult; Z79.82 Long term (current) use of aspirin
CPT/HCPCS: 80048; 80053; 80061; 80306; 80307; 81003; 82010; 82077; 82977; 83036; 83735; 84100; 84484; 85025; 85027; 85347; 85730; 93005; 93306; 93458; 96374; 99291; C1725; C1769; C1874; C1887; C1894; C9600; Q9967